=== PATIENT | male | born 1965 | race Caucasian/White ===

== ENCOUNTER 2016-11-17 00:24 | Emergency (ER) | payer MEDICAID, OTHER ==
[~2016-11-17] VITALS: Ht 172.7 cm; Wt 91.6 kg
[~2016-11-17 00:24] MED LIST: ACET325T14 PO; ANTIDEPRESSANTS; ATOR10TA PO; DIVA500T4 PO; DULO60CA7 PO; HYDR-3240 PO; HYDR25CA PO; LISI-167 PO; LISI5TAB7 PO; NAPR-763 PO; ONDA4TAB13 PO; ONDA4TAB13 SL; OXYC-302 PO; OXYC30TA66 PO; PROM25TA10 PO; SENN1TAB7 PO
[2016-11-17] MEDS ORDERED: HYDROcodone/APAP 5/325 TABLET PO ONE (02:00)
[2016-11-17] MEDS ORDERED: DIAZEPAM 5 MG TABLET PO ONE (02:00)
[2016-11-17] MEDS ORDERED: DIAZEPAM 5 MG TABLET ONE (02:15)
[2016-11-17] MEDS ORDERED: HYDROcodone/APAP 5/325 TABLET ONE (02:16)
[2016-11-17 02:22] LABS: HEMOGLOBIN 12.1 g/dL (13.7-18.0)
[2016-11-17 02:31] LABS: BLOOD UREA NITROGEN 22 mg/dL (7-18)
[2016-11-17 02:57] VITALS: BP 113/85
== END 2016-11-17 03:00 | disposition home or self-care (01) ==
LOC: ED 02:54
DX: M62.838 Other muscle spasm (principal); I10 Essential (primary) hypertension
CPT/HCPCS: 36415; 80048; 82040; 85025

== ENCOUNTER 2017-05-18 13:16 | Emergency (ER) | payer MEDICAID ==
[~2017-05-18] VITALS: Ht 170.2 cm; Wt 88.6 kg
[2017-05-18 13:20] VITALS: BP 119/84
== END 2017-05-18 14:52 | disposition home or self-care (01) ==
LOC: ED 14:31
DX: M79.605 Pain in left leg (principal); I10 Essential (primary) hypertension
CPT/HCPCS: 29505

== ENCOUNTER 2019-11-01 13:09 | Emergency (ER) | payer MEDICAID ==
[~2019-11-01] VITALS: Ht 172.7 cm; Wt 84.0 kg
[~2019-11-01 13:09] MED LIST changes: +ATOR20TA37 PO; +DIVA250T PO; +GABA300C10 PO; +HYDR-2995 PO; +HYDR25TA6 PO; +LEVO100T5 PO; +SENN-177 PO; -SENN1TAB7 PO
--- NOTE | 2019-11-01 13:44 | NUR ---
pt laying in bed, respirations even and unlabored, no signs of distress.
[2019-11-01] MEDS ORDERED: ONDANSETRON 2MG/ML, 2ML IVPush ONE (14:00)
[2019-11-01] MEDS ORDERED: MORPHINE SULFATE 4 MG/ML, 1ML IVPush PRN (14:00)
[2019-11-01 14:05] LABS: BASOPHILS # (AUTO) 0.04 x10^3/uL (0-0.1); BASOPHILS % (AUTO) 1 % (0-1); EOSINOPHILS # (AUTO) 0.09 x10^3/uL (0-0.4); EOSINOPHILS % (AUTO) 1 % (1-7); LYMPHOCYTES # (AUTO) 1.36 x10^3/uL (1-3.4); LYMPHOCYTES % (AUTO) 17 % (22-44); MD NO; MEAN CORPUSCULAR HEMOGLOBIN 31.1 pg (27.5-34.5); MEAN CORPUSCULAR VOLUME 94.1 fL (81-97); MEAN PLATELET VOLUME 10.5 fL (7.4-10.4); MONOCYTES # (AUTO) 0.61 x10^3/uL (0.2-0.8); MONOCYTES % (AUTO) 8 % (2-9); NEUTROPHILS # (AUTO) 5.95 x10^3/uL (1.8-6.8); NEUTROPHILS % (AUTO) 74 % (42-75); PLATELET COUNT 140 x10^3/uL (130-400); RED BLOOD COUNT 4.28 x10^6/uL (4.38-5.82)
[2019-11-01 14:07] LABS: ALBUMIN 3.8 g/dL (3.4-5.0); ANION GAP 6 mmol/L (5-15); CALCIUM 8.3 mg/dL (8.5-10.1); CHLORIDE 110 mmol/L (98-107); CREATININE 1.21 mg/dL (0.7-1.3)
[2019-11-01 14:10] LABS: TROPONIN I < 0.015 ng/mL (0.000-0.045)
[2019-11-01] MEDS ORDERED: ONDANSETRON 2MG/ML, 2ML ONE (14:29)
[2019-11-01] MEDS ORDERED: MORPHINE SULFATE 4 MG/ML, 1ML ONE (14:29)
[2019-11-01] MEDS ORDERED: ASPIRIN 81 MG TABLET EC PO ONE (14:31)
--- NOTE | 2019-11-01 14:37 | NUR ---
pt sitting in bed, conversing, medicated to mar, pt asked how much bus cost when asked what safe ride home would be, plan to give taxi vocher on d/c. no signs of distress, will continue to monitor.
--- NOTE | 2019-11-01 15:19 | NUR ---
pt sitting in bed, states relief from medication, conversing with nurse.
[2019-11-01 15:39] VITALS: BP 144/88
== END 2019-11-01 15:55 | disposition home or self-care (01) ==
LOC: ED 14:05
DX: R06.00 Dyspnea, unspecified (principal); R07.89 Other chest pain; I45.10 Unspecified right bundle-branch block; I10 Essential (primary) hypertension; Z90.89 Acquired absence of other organs; Z88.8 Allergy status to other drugs, medicaments and biological substances
CPT/HCPCS: 36415; 71045; 80048; 82040; 84484; 85025; 93005; 96374; 96375; 99285; J2270; J2405

== ENCOUNTER 2020-04-09 01:13 | Emergency (ER) | payer MEDICAID ==
[~2020-04-09] VITALS: Ht 172.7 cm; Wt 85.0 kg
--- NOTE | 2020-04-09 01:28 | NUR ---
TASK RN: BIB EMS W CO SUDDEN PERIUMBILICAL "MASS" X TONIGHT. + DARK/TARRY STOOL AND NAUSEA. DENIES HEAVY LIFTING/STRAINING. RECENT HX OF GASTRIC ULCER. MASS IS SOFT, TENDER TO PALPATION. NO PULSATION NOTED. BP EQUAL BILAT. BP/SPO2 MONITORING IN PLACE. REPORT TO PRIMARY RNPARKER
--- NOTE | 2020-04-09 01:30 | NUR ---
Report received from VINNY Guillen. This RN to assume care.
[2020-04-09] MEDS ORDERED: SODIUM CHLORIDE 0.9% 1,000ML IVBOLUS ONE (02:00)
[2020-04-09] MEDS ORDERED: ONDANSETRON 2MG/ML, 2ML IVPush ONE (02:00)
[2020-04-09] MEDS ORDERED: SODIUM CHLORIDE FLUSH 10ML SYR IVF ONE (02:00)
[2020-04-09] MEDS ORDERED: ONDANSETRON 2MG/ML, 2ML ONE (02:07)
[2020-04-09] MEDS ORDERED: MORPHINE SULFATE 4 MG/ML, 1ML ONE ×2 (02:07→02:56)
[2020-04-09] MEDS: MORPHINE SULFATE 4 MG/ML, 1ML IVPush PRN ×2 (02:12→02:58)
[2020-04-09 02:38] LABS: BASOPHILS # (AUTO) 0.04 x10^3/uL (0-0.1); BASOPHILS % (AUTO) 0 % (0-1); EOSINOPHILS # (AUTO) 0.28 x10^3/uL (0-0.4); EOSINOPHILS % (AUTO) 3 % (1-7); LYMPHOCYTES # (AUTO) 1.71 x10^3/uL (1-3.4); LYMPHOCYTES % (AUTO) 20 % (22-44); MD NO; MEAN CORPUSCULAR HEMOGLOBIN 30.5 pg (27.5-34.5); MEAN CORPUSCULAR HGB CONC 32.2 g/dL (33.2-36.2); MEAN CORPUSCULAR VOLUME 94.6 fL (81-97); MEAN PLATELET VOLUME 10.6 fL (7.4-10.4); MONOCYTES # (AUTO) 0.99 x10^3/uL (0.2-0.8); MONOCYTES % (AUTO) 12 % (2-9); NEUTROPHILS # (AUTO) 5.46 x10^3/uL (1.8-6.8); NEUTROPHILS % (AUTO) 65 % (42-75); PLATELET COUNT 159 x10^3/uL (130-400); RED BLOOD COUNT 4.56 x10^6/uL (4.38-5.82)
[2020-04-09 02:45] LABS: ALANINE AMINOTRANSFERASE 36 U/L (12-78); ALBUMIN 3.6 g/dL (3.4-5.0); ANION GAP 4 mmol/L (5-15); CALCIUM 8.3 mg/dL (8.5-10.1); CHLORIDE 107 mmol/L (98-107)
[2020-04-09 02:47] LABS: ALKALINE PHOSPHATASE 69 U/L (45-117); BILIRUBIN,TOTAL 0.2 mg/dL (0.2-1.0); CREATININE 1.04 mg/dL (0.7-1.3); TOTAL PROTEIN 7.4 g/dL (6.4-8.2)
--- NOTE | 2020-04-09 02:55 | NUR ---
Urine collected and sent to lab.
--- NOTE | 2020-04-09 03:07 | NUR ---
Patient to CT.
[2020-04-09 03:19] LABS: MICROSCOPIC AUTO
--- NOTE | 2020-04-09 03:25 | NUR ---
Patient returned from CT.
--- NOTE | 2020-04-09 04:27 | NUR ---
Report given to VINNY Burnette. Patient care transferred.
[2020-04-09 05:41] VITALS: BP 106/71
--- NOTE | 2020-04-09 05:41 | NUR ---
PT AMBULATED TO THE BATHROOM WITHOUT ISSUES. PT CURRENTLY RESTING IN BED
[2020-04-09] MEDS ORDERED: OMNIPAQUE 350 MG/ML, 100ML BOTTLE ONE (06:14)
== END 2020-04-09 06:03 | disposition home or self-care (01) ==
LOC: ED 02:35
DX: K43.9 Ventral hernia without obstruction or gangrene (principal); R10.33 Periumbilical pain; I10 Essential (primary) hypertension
CPT/HCPCS: 36415; 74177; 80053; 81001; 83690; 85025; 87086; 96374; 96375; 96376; 99285; J2270; J2405; J7030; Q9967

== ENCOUNTER 2020-05-10 22:17 | Emergency (ER) | payer MEDICAID ==
[~2020-05-10] VITALS: Ht 172.7 cm; Wt 84.0 kg
[2020-05-10 22:20] VITALS: BP 139/106
[2020-05-10] MEDS ORDERED: SODIUM CHLORIDE FLUSH 10ML SYR IVF ONE (22:30)
[2020-05-10] MEDS ORDERED: ONDANSETRON 2MG/ML, 2ML IVPush ONE (22:30)
[2020-05-10 23:11] LABS: BASOPHILS % (AUTO) 1 % (0-1); EOSINOPHILS % (AUTO) 3 % (1-7); LYMPHOCYTES % (AUTO) 24 % (22-44); MEAN CORPUSCULAR HEMOGLOBIN 30.8 pg (27.5-34.5); MEAN CORPUSCULAR HGB CONC 32.7 g/dL (33.2-36.2); MEAN PLATELET VOLUME 10.5 fL (7.4-10.4); MONOCYTES % (AUTO) 10 % (2-9); NEUTROPHILS % (AUTO) 62 % (42-75); PLATELET COUNT 165 x10^3/uL (130-400); RED BLOOD COUNT 4.55 x10^6/uL (4.38-5.82); RED CELL DISTRIBUTION WIDTH 14.8 % (9.4-14.8)
[2020-05-10 23:14] LABS: ALBUMIN 3.7 g/dL (3.4-5.0); ANION GAP 8 mmol/L (5-15); CALCIUM 8.4 mg/dL (8.5-10.1); CHLORIDE 109 mmol/L (98-107)
[2020-05-10 23:18] LABS: ALANINE AMINOTRANSFERASE 29 U/L (12-78); ALKALINE PHOSPHATASE 76 U/L (45-117); BILIRUBIN,TOTAL 0.2 mg/dL (0.2-1.0); CREATININE 0.99 mg/dL (0.7-1.3); TOTAL PROTEIN 7.6 g/dL (6.4-8.2)
[2020-05-10 23:38] LABS: MD NO
--- NOTE | 2020-05-11 00:44 | NUR ---
BECK OPERATOR: PT. TO ROOM FROM LOBBY AT THIS TIME VIA W/C.
[2020-05-11] MEDS ORDERED: ONDANSETRON 2MG/ML, 2ML ONE (01:48)
[2020-05-11] MEDS ORDERED: MORPHINE SULFATE 4 MG/ML, 1ML ONE ×2 (01:48→02:20)
[2020-05-11] MEDS: MORPHINE SULFATE 4 MG/ML, 1ML IVPush PRN ×2 (01:53→02:28)
== END 2020-05-11 03:33 | disposition home or self-care (01) ==
LOC: ED 05-11 03:31
DX: K42.9 Umbilical hernia without obstruction or gangrene (principal); J15.9 Unspecified bacterial pneumonia; R10.13 Epigastric pain; R11.2 Nausea with vomiting, unspecified
CPT/HCPCS: 36415; 71045; 80053; 83605; 83690; 85025; 96374; 96375; 96376; 99284; J2270; J2405

== ENCOUNTER 2021-01-29 08:00 | Outpatient (CLI) | payer MEDICAID ==
[~2021-01-29] VITALS: Ht 172.7 cm; Wt 76.8 kg
[~2021-01-29 08:00] MED LIST changes: +HYDR-2214 PO; -HYDR-3240 PO; -OXYC-302 PO; +OXYC1TAB14 PO
[2021-01-29] MEDS ORDERED: FAMO20TA7 PO (12:27)
[2021-01-29] MEDS ORDERED: SUCR1TAB33 PO (12:27)
[2021-01-29] MEDS ORDERED: ATOR40TA78 PO (12:27)
[2021-01-29] MEDS ORDERED: LEVO25TA4 PO (12:27)
[2021-01-29] MEDS ORDERED: ONDA4TAB13 SL (12:27)
[2021-01-29] MEDS ORDERED: OMEP-110 PO (12:27)
[2021-01-29] MEDS ORDERED: HYDR-826 PO (12:27)
[2021-01-29] MEDS ORDERED: LISI40TA9 PO (12:27)
[2021-01-29 13:06] LABS: ALANINE AMINOTRANSFERASE 61 U/L (12-78); ALBUMIN 3.9 g/dL (3.4-5.0); ANION GAP 7 mmol/L (5-15); CALCIUM 8.7 mg/dL (8.5-10.1); CHLORIDE 108 mmol/L (98-107); CREATININE 1.17 mg/dL (0.7-1.3)
[2021-01-29 13:08] LABS: ALKALINE PHOSPHATASE 91 U/L (45-117); BILIRUBIN,TOTAL 0.5 mg/dL (0.2-1.0); TOTAL PROTEIN 7.6 g/dL (6.4-8.2)
== END 2021-01-29 23:59 | disposition home or self-care (01) ==
LOC: STAR 08:00 → EDSTATUS 01-31 14:15
PROVIDERS: ATTEND Orthopaedic Surgery
DX: Z01.812 Encounter for preprocedural laboratory examination (principal); Z20.822 Contact with and (suspected) exposure to COVID-19; S46.011A Strain of muscle(s) and tendon(s) of the rotator cuff of right shoulder, initial encounter; M75.41 Impingement syndrome of right shoulder; M19.011 Primary osteoarthritis, right shoulder; M75.21 Bicipital tendinitis, right shoulder; X58.XXXA Exposure to other specified factors, initial encounter; Y93.89 Activity, other specified; Y92.89 Other specified places as the place of occurrence of the external cause; Y99.8 Other external cause status
CPT/HCPCS: 36415; 80053; U0003; U0005